=== PATIENT | male | born 1950 ===

== ENCOUNTER 2018-07-25 07:18 | Outpatient (CLI) | payer OTHER ==
[~2018-07-25] VITALS: Ht 172.7 cm; Wt 81.6 kg
== END 2018-07-25 07:35 | disposition home or self-care (01) ==
LOC: OFIC 805 07:18
DX: J31.0 Chronic rhinitis (principal); H91.8X3 Other specified hearing loss, bilateral; H61.23 Impacted cerumen, bilateral; J34.2 Deviated nasal septum